=== PATIENT | male | born 1995 | race Caucasian/White ===

== ENCOUNTER 2019-08-26 10:07 | Emergency (ER) | payer OTHER, SELFPAY ==
--- NOTE | ~2019-08-26 | XR_ITS ---
XR hand RT min 3V 08/26/2019 10:28 Indication: Right hand pain after trauma Procedure: 3 views right hand Comparison: 07/18/2003 Findings: There is an oblique fracture proximal aspect of the third metacarpal, best seen on oblique image. There is dorsal displacement and ventral angulation. No other fractures identified. Mild soft tissue swelling. No foreign bodies. Impression: 1: Oblique fracture proximal aspect of the right third metacarpal with dorsal displacement and ventra l angulation. Reviewed, dictated and finalized at location A. Impression: 1: Oblique fracture proximal aspect of the right third metacarpal with dorsal d isplacement and ventral angulation.
[2019-08-26 10:15] VITALS: BP 144/100; PULSE 104; RESP 18; TEMP 36.6; O2SAT 100
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
[2019-08-26] MEDS: MORPHINE SULFATE 4 MG/ML INJ IV PUSH (10:20)
[2019-08-26] MEDS: MORPHINE SULFATE 2 MG/ML INJ IV PUSH (11:35)
== END 2019-08-26 12:18 | disposition home or self-care (01) ==
PROVIDERS: Emergency Provider Emergency Medicine; PCP Family Medicine
DX: S62.312A Displaced fracture of base of third metacarpal bone, right hand, initial encounter for closed fracture (principal); F17.200 Nicotine dependence, unspecified, uncomplicated; W22.09XA Striking against other stationary object, initial encounter
CPT/HCPCS: 29125; 73130; 96374; 96376; 99284; A4565; J2270

== ENCOUNTER 2019-08-29 00:34 | Day surgery (SDC) | payer OTHER, SELFPAY ==
[2019-08-27 13:59] VITALS: BMI 21.4
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
[2019-08-29] VITALS (10 sets, daily range): BP systolic 100–134; BP diastolic 63–89; PULSE 52–69; RESP 12–20; TEMP 36.1–36.9; O2SAT 97–100
--- NOTE | ~2019-08-29 | XR_ITS ---
EXAMINATION: XR surgery orthopedic DATE: 08/29/2019 10:15 INDICATION: ORIF right third metacarpal TECHNIQUE: 5 fluoroscopic spot images of the right hand were obtained during procedure performed by daiana covington or Ariel. Radiologist was not present for the imaging or procedure. The amount of fluoroscopy ti me used during this procedure was 0.7 minutes. COMPARISON: 08/26/2019 FINDINGS: Initial vegetable washer images again demonstrate a comminuted intra-articular fracture at the base of the right third metacarpal with 2 cortical width dorsal displacement and mild palmar angulation at t he more distal oblique extra-axial fracture plane and additional nondisplaced fracture plane extendin g across the proximal metaphyseal fragment to the proximal articular surface. Subsequent images demon strate reduction of the fracture to near-anatomic alignment and fixation across both fracture planes with interfragmentary screws. No other fractures identified. IMPRESSION: 1. Near-anatomic alignment post open reduction and internal fixation of a comminuted intra-articular fracture at the base of the right third metacarpal. Reviewed, dictated and finalized at location A. IMPRESSION: 1. Near-anatomic alignment post open reduction and internal fixation of a commi nuted intra-articular fracture at the base of the right third metacarpal.
[2019-08-29] MEDS: LACTATED RINGERS 1,000 ML 30 ML IV CONT ×2 (07:30→10:21)
--- NOTE | 2019-08-29 07:49 | WPDANESEPPF ---
Anes - Initial Pre Proc Eval Procedure: Operation Date: 08/29/19 09:00 Proposed Procedures p Open Reduction Internal Fixation Right Middle Metacarpal Base - Ap George MD Date/Time: 08/29/19 07:49 Surgeon: Ap George MD Pre Op Diagnosis: Fracture of Third Metacarpal Shaft,Closed Displace Patient Data Age: 23 Gender: M Height: 5 ft 9 in Weight: 65.77 kg Allergies Allergy/AdvReac Type Severity Reaction Status Date / Time No Known Allergies Allergy Verified 08/27/19 14:01 Home Medications Medication Instructions Recorded Confirmed Type hydrocodone-acetaminophen 1 tablet PO Q6H PRN #20 tablet 08/26/19 08/27/19 Rx Patient hx anesthesia problems: none Family hx anesthesia problems: none PMFSH Past Medical History Medical History (Updated 08/27/19 @ 00:00 by Demarcus Eaton) No significant past medical history Surgical History Surgical History No significant past surgical history Social History Social History Smoking status: Current every day smoker Gender identity (if verbalized by the patient): Male Anes - Eval Final PreProcedure Day of Procedure 08/29/19 07:49 Patient weight: normal Heart: regular rate and rhythm Lungs: clear to auscultation Airway: Mallampati scale class II Neurological: alert and oriented Last oral intake: >/= 8 hours ASA classification: II Emergent: no Anesthetic plan: proceed Anesthesia type and monitoring: general LMA and standard monitoring Informed Consent: The patient's anesthetic plan and its attendant risks and benefits were discussed with the patient/family/POA. Questions were solicited and answers provided to the satisfaction of the patient/family/POA.
[2019-08-29] MEDS: LIDO 1%/EPINEPHRINE 1:100,000 20 ML VIAL 10 ML INFILTRATE (08:35)
[2019-08-29] MEDS: BACITRACIN OINTMENT 15 GM TUBE 1 APPLIC TOPICAL (08:37)
[2019-08-29] MEDS: ceFAZolin 2 GM/D5W 50 ML 2 GM/50 ML BAG IVPB (08:56)
--- NOTE | 2019-08-29 08:59 | WPDHPUPDATE1 ---
History and Physical Update Update Date/Time: 08/29/19 08:59 History and Physical has been reviewed, including an updated exam of the patient. There are NO changes in the patient's condition. Risks, benefits, and alternatives have been discussed and questions answered. Patient agrees to proceed with procedure.
--- NOTE | 2019-08-29 10:42 | P.OPB_ITS ---
Procedure Note - Brief Procedure Note - Brief Date of procedure: 08/29/19 Pre-op diagnosis: Fracture of Third Metacarpal Shaft,Closed Displace Post-op diagnosis: other (Closed, comminuted displaced fracture of the right 3rd metacarpal base.) Procedure performed: Open reductioin with internal lag screw fixation. Implants: Two 2.0 mm screws from the Mini Fragment hand set; 16, 18 mm lengths. Anesthesia: GETA Surgeon: Ap George MD Freight Car Builder: Katelyn Estimated blood loss (mL): 3 Tourniquet time (min): 47 Drains: No Packing: No Pathology: none sent Complications: No immediate complications Condition: stable Disposition: PACU
--- NOTE | 2019-08-29 10:47 | P.OP_ITS ---
Procedure Note - Detailed Date of procedure: 08/29/19 Pre-op diagnosis: Fracture of Third Metacarpal Shaft,Closed Displace Closed, comminuted, displaced fracture of the right 3rd metacarpal base Post-op diagnosis: same Procedure performed: Open reduction and internal lag screw fixation x2, right 3rd metacarpal base Description of procedure: The patient's right hand was marked in the holding area. He was taken around to the operating room where he was placed supine on the operating table. A time-out was held. He was given general endotracheal anesthesia. The right upper extremity was prepped and draped in usual fashion. The C-arm was brought in and fracture images made. The operative site was infiltrated with 1% lidocaine with epinephrine. The tourniquet was inflated to 250 mmHg. The dorsal midline incision over the 3rd metacarpal was made. Dissection between the 2nd and 3rd extensor tendons revealed the fracture site very plainly. The fragments were dissected subperiostialy. It was noted there w as comminution of the base into 2 pieces, the smaller, more radial of which also comprised proximal shaft These were relatively easy to reduce and a clamp was applied between 2 shaft fragments. The 2.0 mm lag screw was passed between these providing satisfactory stability. Images confirmed the length to be appropriate. A 2nd lag screw was placed between the larger base fragment and the smaller radial fragment. This completed the fixation and again the screw length was documented as appropriate. The wound was irrigated. The periosteal tissue was closed with 3-0 Vicryl suture. The skin wound was closed with running intradermal 3-0 Vicryl. Additional infiltration of 10 milliliter of 0.5% Marcaine plain was administered. A dressing with Xeroform, fluffy gauze, Michela wrap and Coban was applied. The patient had been given 900 mg of clindamycin prior to surgery. Total tourniquet time was 47 minutes. He is being discharged home with a new prescription for hydrocodone 7.5/325 number 14. He has instructions in wound care and follow-up. Surgeon: Ap George MD
--- NOTE | 2019-08-29 10:50 | SUR.PHASEI ---
1045 - dr. rain at bedside talking with pt.
--- NOTE | 2019-08-29 13:17 | SUR.PHASEII ---
1230: Patient stated, My dressing feels too tight. RN checked cap refill, patient could wiggle fingers, and fit her two fingers between bandage and hand. RN had another RN check and she felt it was fine too. RN reassured patient and explained the purpose of checking cap refill.
== END 2019-08-29 13:05 | disposition home or self-care (01) ==
PROVIDERS: PCP Family Medicine; Visit Provider Plastic Surgery
PROC: (CPT 26615; principal; 2019-08-29 09:00)
DX: S62.312A Displaced fracture of base of third metacarpal bone, right hand, initial encounter for closed fracture (principal); W22.09XA Striking against other stationary object, initial encounter; F17.210 Nicotine dependence, cigarettes, uncomplicated
CPT/HCPCS: 26615; A9270; C1713; J0131; J0690; J2250; J2405; J2704; J3010; J7120

== ENCOUNTER 2019-09-09 17:30 | Outpatient (CLI) | payer OTHER, SELFPAY ==
--- NOTE | ~2019-09-09 | XR_ITS ---
EXAMINATION: XR hand RT min 3V DATE: 09/09/2019 17:57 INDICATION: Displaced fracture of base of third metacarpal. TECHNIQUE: 3 views of right hand were obtained. Soft tissue swelling and COMPARISON: Right hand radiographs 08/26/2019 FINDINGS: There is an oblique extra-articular fracture of base of third metacarpal in near-anatomic a lignment. Internal fixation seen with 2 screws. Again seen is a small fragment of ossification at the radial aspect of base of fifth proximal phalanx. Joint spaces are normal. IMPRESSION: 1. Oblique extra-articular fracture of base of third metacarpal status post open reduction internal f ixation. 2. Unchanged small fragment of ossification at the radial base of fifth proximal phalanx, which may b e an old avulsion fracture. Reviewed, dictated and finalized at location E. IMPRESSION: 1. Oblique extra-articular fracture of base of third metacarpal status post ope n reduction internal fixation. 2. Unchanged small fragment of ossification at the radial base of fifth proxima l phalanx, which may be an old avulsion fracture.
== END 2019-09-09 17:31 | disposition home or self-care (01) ==
LOC: ANHIMG 17:35
PROVIDERS: PCP Family Medicine; Visit Provider Plastic Surgery
DX: S62.316D Displaced fracture of base of fifth metacarpal bone, right hand, subsequent encounter for fracture with routine healing (principal); X58.XXXD Exposure to other specified factors, subsequent encounter
CPT/HCPCS: 73130

== ENCOUNTER 2019-09-12 16:02 | Outpatient (CLI) | payer OTHER, SELFPAY ==
--- NOTE | ~2019-09-12 | CT_ITS ---
EXAMINATION: CT wrist RT wo con DATE: 09/12/2019 16:36 INDICATION: Subluxation of the carpometacarpal joint TECHNIQUE: High resolution computed tomography (CT) of the right wrist and carpus was performed witho ut intravenous contrast. Additional sagittal and coronal reconstructions were performed. Automated ex posure control and iterative reconstruction technique were employed. The dose-length product was 425. 76 mGy-cm. COMPARISON: Radiograph dated 09/09/2019 and 08/26/2019 FINDINGS: Recent internal fixation with 2 interfragmentary screws of an oblique intra-articular fracture at the base of the third metacarpal which is in near-anatomic alignment with no significant fracture gap or incongruity at the articular surface. There is dorsal subluxation and palmar angulation of the fourt h and fifth metacarpals relative to the axis of the second and third metacarpals. There is a small av ulsion fracture fragment at the palmar/radial aspect of the base of the fourth metacarpal which remai ns nondisplaced relative to the base of the third metacarpal. There is an oblique coronally oriented fracture through the hamate. There is approximately 30 degrees dorsal angulation of this fragment res ulting in a 10 mm fracture gap at the articular surface of the fourth and fifth carpal metacarpal cyril nt spaces. The base of the fourth and fifth metacarpals have migrated a few millimeter proximally int o the hamate fracture gap. The hamate fracture plane also extends to involve the articular surfaces w ith the capitate and triquetrum. No other fractures identified. Aside from the angulated dorsal hamat e fragment there is normal alignment of the carpal bones and wrist joint. Joint spaces are normal asi de from the involvement by the previously described fractures. Although not diagnostically evaluated on CT imaging, the muscles and tendons of the hand appear unremarkable. Diffuse mild soft tissue swel ling about the hand. IMPRESSION: 1. Dorsal subluxation and impaction injury at the fourth and fifth carpal metacarpal joints including distraction of a small avulsion fracture fragment at the palmar/radial base of the fourth metacarpal and angulated oblique coronally oriented fracture across the hamate. 2. Near-anatomic alignment of an internally fixed intra-articular fracture at the base of the right t hird metacarpal. Reviewed, dictated and finalized at location A. IMPRESSION: 1. Dorsal subluxation and impaction injury at the fourth and fifth carpal metac arpal joints including distraction of a small avulsion fracture fragment at the palmar/radial base of the fourth metacarpal and angulated oblique coronally or iented fracture across the hamate. 2. Near-anatomic alignment of an internally fixed intra-articular fracture at t he base of the right third metacarpal.
== END 2019-09-12 16:03 | disposition home or self-care (01) ==
LOC: ANHIMG 16:05
PROVIDERS: PCP Family Medicine; Visit Provider Plastic Surgery
DX: S63.051A Subluxation of other carpometacarpal joint of right hand, initial encounter (principal); S62.141A Displaced fracture of body of hamate [unciform] bone, right wrist, initial encounter for closed fracture; X58.XXXA Exposure to other specified factors, initial encounter
CPT/HCPCS: 73200

== ENCOUNTER 2019-09-24 00:35 | Outpatient (CLI) | payer OTHER, SELFPAY ==
[2019-09-24 18:39] LABS: SARS-CoV-2 RNA PCR Negative
== END 2019-09-24 00:36 | disposition home or self-care (01) ==
LOC: ANHCOVIDDT 00:35
PROVIDERS: PCP Family Medicine; Visit Provider Plastic Surgery
DX: Z01.818 Encounter for other preprocedural examination (principal); Z11.59 Encounter for screening for other viral diseases
CPT/HCPCS: 87635; C9803; U0003

== ENCOUNTER 2019-09-26 01:00 | Day surgery (SDC) | payer OTHER, SELFPAY ==
[2019-09-18 10:51] VITALS: BMI 21.7
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
--- NOTE | ~2019-09-26 | XR_ITS ---
EXAMINATION: XR surgery orthopedic DATE: 09/26/2019 11:11 INDICATION: Fractures of hamate and third and fourth metacarpals. TECHNIQUE: 9 intraoperative fluoroscopic views of right wrist were obtained. I was not present. Fluor oscopy exposure time was 112 seconds. COMPARISON: Right hand radiographs 09/09/2019, right wrist CT 09/12/2019 FINDINGS: There is a comminuted fracture of base of third metacarpal in near-anatomic alignment with internal fixation with 2 screws. There is fixation of hamate with a screw. There is a pin in the four th metacarpal and capitate. There is a pin in the second through fifth metacarpals. IMPRESSION: 1. Comminuted fracture of third metacarpal status post open reduction internal fixation. 2. Fracture of hamate status post open reduction internal fixation. Reviewed, dictated and finalized at location A.
--- NOTE | 2019-09-26 08:12 | WPDHPUPDATE1 ---
History and Physical Update Update Date/Time: 09/26/19 08:12 History and Physical has been reviewed, including an updated exam of the patient. There are NO changes in the patient's condition. Risks, benefits, and alternatives have been discussed and questions answered. Patient agrees to proceed with procedure.
[2019-09-26] MEDS: LACTATED RINGERS 1,000 ML 30 ML IV CONT (08:56)
[2019-09-26 08:59] VITALS: BP 125/82; PULSE 56; TEMP 36.9; O2SAT 100
--- NOTE | 2019-09-26 09:17 | WPDANESEPPF ---
Anes - Initial Pre Proc Eval Procedure: Operation Date: 09/26/19 10:00 Proposed Procedures p Open Reduction Internal Fixation Right Hamate and Right Fourth Metacarpal Base - Ap George MD Date/Time: 09/26/19 09:17 Surgeon: Ap George MD Pre Op Diagnosis: fx right hamate bone and rt metacarpal base Patient Data Age: 23 Gender: M Height: 5 ft 9 in Weight: 67.1 kg Last Vital Signs Temp 36.9 C 09/26/19 08:59 Pulse 56 L 09/26/19 08:59 BP 125/82 09/26/19 08:59 Pulse Ox 100 09/26/19 08:59 Allergies Allergy/AdvReac Type Severity Reaction Status Date / Time No Known Allergies Allergy Verified 09/18/19 10:51 Home Medications Medication Instructions Recorded Confirmed Type No Home Medications 09/18/19 09/18/19 History hydrocodone-acetaminophen 1 tablet PO Q4H PRN #14 tablet 09/26/19 Rx Patient hx anesthesia problems: none Family hx anesthesia problems: none PMFSH Past Medical History Medical History No significant past medical history Surgical History Surgical History No significant past surgical history Social History Social History Smoking status: Current every day smoker Gender identity (if verbalized by the patient): Male Anes - Eval Final PreProcedure Day of Procedure 09/26/19 09:17 Patient weight: normal Heart: regular rate and rhythm Lungs: clear to auscultation Airway: Mallampati scale class II Neurological: alert and oriented Last oral intake: >/= 8 hours ASA classification: II Emergent: no Anesthetic plan: proceed Anesthesia type and monitoring: general LMA and standard monitoring Informed Consent: The patient's anesthetic plan and its attendant risks and benefits were discussed with the patient/family/POA. Questions were solicited and answers provided to the satisfaction of the patient/family/POA.
[2019-09-26] MEDS: ceFAZolin 2 GM/D5W 50 ML 2 GM/50 ML BAG IVPB (09:36)
[2019-09-26] MEDS: LIDO 1%/EPINEPHRINE 1:100,000 20 ML VIAL INFILTRATE (10:12)
[2019-09-26 11:40] VITALS: BP 129/82; PULSE 90; RESP 14; TEMP 36.9; O2SAT 100
--- NOTE | 2019-09-26 11:58 | P.OPB_ITS ---
Procedure Note - Brief Procedure Note - Brief Date of procedure: 09/26/19 Pre-op diagnosis: fx right hamate bone and rt metacarpal base Post-op diagnosis: other (Displaced fracture of the right hamate/ Fracture dislocation of the 4th metacarpal base/ Subluxation of the 5th metacarpal.) Procedure performed: ORIF of the right hamate. Orif of the 4th metacarpal base. Reduction and internal fixation of the 5th metacarpal subluxation. Implants: 2.0 x 16 mm lag screw from the [employer]. Hand set. 0.045 inch cwire x2. Anesthesia: GLMA (1% lidocaine with epinephrine and Exparel) Surgeon: Ap George MD Felt Hooker: Sergio Estimated blood loss (mL): 10 Tourniquet time (min): 97 Drains: No Packing: No Pathology: none sent Complications: No immediate complications Condition: stable Disposition: PACU
[2019-09-26 12:33] VITALS: BP 134/99; PULSE 70; RESP 13; TEMP 36.9; O2SAT 96
[2019-09-26 12:55] VITALS: BP 156/95; PULSE 62; RESP 16
--- NOTE | 2019-09-26 13:09 | SUR.PHASEII ---
1308 updated mom on son condition, is heading this way
[2019-09-26 13:25] VITALS: BP 136/90; PULSE 58; RESP 14
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
--- NOTE | 2019-09-26 16:33 | P.OP_ITS ---
Procedure Note - Detailed Date of procedure: 10/03/19 Pre-op diagnosis: fx right hamate bone and rt metacarpal base Coronal fracture of the right metacarpal, comminuted displaced fracture of the base of the 4th metacarpal, proximal dorsal subluxation of the base of the 5th metacarpal. Post-op diagnosis: same Procedure performed: Open reduction and internal fixation of the hamate and right 4th metacarpal base fractures and reduction of subluxed right 5th metacarpal base Description of procedure: The patient's right hand was marked as he waited in the holding area. He was rolled to the operating room and placed supine on the operating table. A time-out was held and confirmed. He was given general anesthesia and the extremity was prepped and draped in the usual fashion. The site was marked for the incision. The area was locally infiltrated with 1% lidocaine with epinephrine. The tourniquet was inflated to 250 mmHg. C-arm images of the fracture condition were examined. The incision was made as marked and dissection was carried across the wrist paralleling the 4th and 5th metacarpals. The cutaneous nerves were protected, several veins were cauterized.The dissection was carried out between the 4th and 5th extensor tendons and the fracture sites were exposed subperiosteally where feasible. Fracture clot material was removed. The dorsal hamate fracture fragment was identified cleanly split in the coronal plane. This was not comminuted. The base of the 4th metacarpal was in several displaced fragments. The base of the 5th metacarpal was not fractured. Both metacarpals had proximally subluxed into the fracture gap of the hamate. Soft tissue around these fractures had thickened and considerable dissection work was required to reduce these. When it could be accomplished, the hamate fracture was repaired with a single 2 mm x 16 mm lag screw from [employer] handset. The base of the 4th metacarpal was reduced to its palmar fragment and to the hamate. A longitudinally oriented C-wire was passed through the base of the 4th metacarpal capturing the dorsal cortex . This passed into the capitate. Several images demonstrate the pin does not exit the capitate. The base of the 5th metacarpal was reduced also to the hamate. A 2nd C-wire was passed transversely across the proximal aspect of the 5th 4th and 3rd metacarpals. Additional stabilization did not seem to be required. Exposure of the hamate resulted in opening the triquetral hamate joint. The large dorsal plate fragment remained attached to soft tissue along the ulnar border. The ligamentous tissue between the triquetrum and hamate was repaired with a suture anchor and single 0 braided suture. Both C wires were cut short beneath skin level and pigtailed. Neither of these impinges directly upon musculotendinous tissue and did not restrict passive range of motion. The tourniquet was released prior to skin closure; it was up for 97 minutes. The skin was closed with a running intradermal 3-0 Vicryl suture. 8 milliliter of Exparel anesthetic were injected over the dorsum of the wrist and hand. A soft bulky bandage with Shubham wrap was applied, no splint He is being discharged home with a prescription for oxycodone 5/325. He was given 2 g of Ancef preop and also received IV acetaminophen preop. Surgeon: Ap George MD
== END 2019-09-26 14:46 | disposition home or self-care (01) ==
PROVIDERS: PCP Family Medicine; Visit Provider Plastic Surgery
PROC: (CPT 26615; principal; 2019-09-26 10:00)
DX: S62.141A Displaced fracture of body of hamate [unciform] bone, right wrist, initial encounter for closed fracture (principal); S62.314A Displaced fracture of base of fourth metacarpal bone, right hand, initial encounter for closed fracture; S62.316A Displaced fracture of base of fifth metacarpal bone, right hand, initial encounter for closed fracture; W22.09XA Striking against other stationary object, initial encounter; F17.200 Nicotine dependence, unspecified, uncomplicated
CPT/HCPCS: 25645; 26615 ×2; A9270; C1713; C9290; J0131; J0690; J1100; J2250; J2405; J2704; J3010; J7120

== ENCOUNTER 2019-10-18 00:19 | Outpatient (CLI) | payer OTHER, SELFPAY ==
[2019-10-18 20:58] LABS: SARS-CoV-2 RNA PCR Negative
== END 2019-10-18 00:20 | disposition home or self-care (01) ==
LOC: ANHCOVIDDT 00:20
PROVIDERS: PCP Family Medicine; Visit Provider Plastic Surgery
DX: Z01.818 Encounter for other preprocedural examination (principal); Z11.59 Encounter for screening for other viral diseases
CPT/HCPCS: 87635; C9803; U0003

== ENCOUNTER 2019-10-21 01:44 | Day surgery (SDC) | payer OTHER, SELFPAY ==
[2019-10-16 17:12] VITALS: BMI 21.4
--- NOTE | 2019-10-17 16:45 | HP_ITS ---
DATE OF SERVICE: 10/21/2019 PREOPERATIVE DIAGNOSES: History of ORIF of right hamate fracture, 4th metacarpal base fracture, and 5th metacarpal subluxation. HISTORY: This man punched a wall at his home on August 25. X-rays revealed what we thought was a 3rd metacarpal base fracture and that was repaired on 08/29/2019. Subsequently had some deformity to the hand that appeared suddenly and additional radiologic workup including CT scan revealed the fractured hamate and the proximally dislocated 4th and 5th metacarpals and the 4th metacarpal base fracture. He has been fixed with a screw and 2 C-wires for the more recently diagnosed fractures and 2 screws for the middle metacarpal fracture. We are bringing him today for removal of the 2 C-wires as planned. OTHER PAST MEDICAL HISTORY: Indicates that he uses no chronic medications. ALLERGIES: HE IS NOT KNOWN TO BE ALLERGIC TO ANY MEDICATIONS. PAST SURGICAL HISTORY: He has had no other surgeries than those mentioned above. He is not aware of any chronic ailments and he is a nonsmoker. FAMILY HISTORY: Noncontributory. REVIEW OF SYSTEMS: Otherwise negative. SOCIAL HISTORY: He lives in [place]. He works for [employer] and does need to be able to do fine motor movement. PHYSICAL EXAMINATION: GENERAL: He is a pleasant, cooperative adult male, 5 feet 8, weighs 135 pounds. He is in no distress. HEENT: Unremarkable. CHEST: Clear to auscultation. HEART: Regular rate and rhythm by palpation. ABDOMEN: Soft, nontender. EXTREMITIES: Appear normal. He has some decreased range of motion in the right hand, particularly the ulnar digits. He is very tender over the pin sites. He continues to work with therapy. ASSESSMENT: History of ORIF of the right 4th and 5th metacarpals and hamate. PLAN: Planned removal of 2 fixation C-wires under MAC anesthetic. D I MT: Sergio
--- NOTE | ~2019-10-21 | XR_ITS ---
EXAMINATION: XR surgery orthopedic DATE: 10/21/2019 12:43 INDICATION: Orthopedic instrumentation removal from the right hand TECHNIQUE: A fluoroscopic spot images of the right hand were obtained during procedure performed by Perez George. Radiologist was not present for the imaging or procedure. The amount of fluoroscopy time us ed during this procedure was 0.2 minutes. COMPARISON: 09/26/2019 FINDINGS: Interval removal of a percutaneous pin extending across the base of the fourth metacarpal into the ca pitate. No interval change in 3 fixation screws, one at the hamate and the other 2 at the base of the third metacarpal for fixation of previously seen fractures. There is new callus formation, not yet d efinitively solidly bridging across the oblique fracture at the base of the third metacarpal which re jessie in near-anatomic alignment. The hamate fracture also appears to remain in essentially anatomic alignment. The previously seen tiny fracture at the radial side of the base of the fourth metacarpal is not clearly visualized. Profiled joint spaces are normal. No other fractures identified. IMPRESSION: 1. Interval removal of a previous scans fixation pin spanning the fourth carpal metacarpal joint. 2. Unchanged screw fixation of fractures at the hamate and base of the third metacarpal which remain in near anatomic alignment with changes of healing at the latter. Reviewed, dictated and finalized at location A. IMPRESSION: 1. Interval removal of a previous scans fixation pin spanning the fourth carpal metacarpal joint. 2. Unchanged screw fixation of fractures at the hamate and base of the third me tacarpal which remain in near anatomic alignment with changes of healing at the latter.
[2019-10-21 10:29] VITALS: BP 104/64; PULSE 62; RESP 16; TEMP 36.3; O2SAT 98
[2019-10-21] MEDS: LACTATED RINGERS 1,000 ML 30 ML IV CONT (10:45)
--- NOTE | 2019-10-21 11:51 | WPDHPUPDATE1 ---
History and Physical Update Update Date/Time: 10/21/19 11:51 History and Physical has been reviewed, including an updated exam of the patient. There are NO changes in the patient's condition. Risks, benefits, and alternatives have been discussed and questions answered. Patient agrees to proceed with procedure.
--- NOTE | 2019-10-21 11:57 | WPDANESEPPF ---
Anes - Initial Pre Proc Eval Procedure: Operation Date: 10/21/19 12:00 Proposed Procedures p Planned Removal of C-Wires Right Hand - Ap George MD Date/Time: 10/21/19 11:57 Surgeon: Ap George MD Pre Op Diagnosis: S62.151A, S62.314A Patient Data Age: 24 Gender: M Height: 5 ft 9 in Weight: 63.6 kg Last Vital Signs Temp 97.4 F L 10/21/19 10:29 Pulse 62 10/21/19 10:29 Resp 16 10/21/19 10:29 BP 104/64 10/21/19 10:29 Pulse Ox 98 10/21/19 10:29 Allergies Allergy/AdvReac Type Severity Reaction Status Date / Time No Known Allergies Allergy Verified 10/16/19 17:20 Home Medications Medication Instructions Recorded Confirmed Type hydrocodone-acetaminophen 1 tablet PO Q6-8H PRN #15 tablet 10/16/19 10/16/19 Rx Patient hx anesthesia problems: none Family hx anesthesia problems: none PMFSH Social History Social History Smoking status: Current every day smoker Gender identity (if verbalized by the patient): Male Anes - Eval Final PreProcedure Day of Procedure 10/21/19 11:57 Patient weight: normal Heart: regular rate and rhythm Lungs: clear to auscultation Airway: Mallampati scale class II Neurological: alert and oriented Last oral intake: >/= 8 hours ASA classification: II Emergent: no Anesthetic plan: proceed Anesthesia type and monitoring: general GIVS and standard monitoring Informed Consent: The patient's anesthetic plan and its attendant risks and benefits were discussed with the patient/family/POA. Questions were solicited and answers provided to the satisfaction of the patient/family/POA.
[2019-10-21] MEDS: BUPIVACAINE/EPINEPHRINE 0.5% 30 ML VIAL 10 ML INFILTRATE (12:28)
[2019-10-21] MEDS: LIDO 1%/EPINEPHRINE 1:100,000 20 ML VIAL 7 ML INFILTRATE (12:30)
[2019-10-21] MEDS: KETOROLAC 30 MG/ML VIAL (*BKC) IV PUSH (12:31)
[2019-10-21 12:41] VITALS: BP 97/57; PULSE 52; RESP 16; O2SAT 99
--- NOTE | 2019-10-21 13:03 | PM.OP ---
Procedure Note - Brief Procedure Note - Brief Date of procedure: 10/21/19 Pre-op diagnosis: S62.151A, S62.314A Fractures of the 4th and 5th metacarpal bases and hamate. Post-op diagnosis: same Procedure performed: Planned removal of 2 c-wires. Anesthesia: MAC Surgeon: Ap George MD Estimated blood loss (mL): 5 Tourniquet time (min): 12 Drains: No Packing: No Pathology: none sent Complications: No immediate complications Condition: stable Disposition: same day
[2019-10-21 13:15] VITALS: BP 122/79; PULSE 45; RESP 14
[2019-10-21 13:45] VITALS: BP 113/77; PULSE 42; RESP 14
--- NOTE | 2019-10-21 18:30 | PM.PROC ---
Procedure Note - Detailed Date of procedure: 10/21/19 Pre-op diagnosis: S62.151A, S62.314A Fracture of right 4th metacarpal base and fracture of the hamate and subluxation of the right 5th metacarpal. Post-op diagnosis: same Procedure performed: Planned removal of two fixation c-wires from right hand. Description of procedure: The appropriate hand was marked on the patient's in the holding area. He was then taken to the operating room where he was placed supine on the operating table. A time-out was held and confirmed he was then given IV sedation and the right Upper extremity was prepped and draped in the usual fashion. The most ulnar pin could easily be palpated beneath the skin. The C-arm was brought and to image the 2nd pin this was identified to be accessible under 1 of the previous incisions. Both sites were anesthetized with 1% lidocaine with epinephrine. The tourniquet was inflated to 250 mmHg. The incision over the 2nd metacarpal was made and blunt dissection revealed the extensor tendons. The skin and fascia were carefully elevated off the dorsal surface of the tendons for several cm. We then released beneath the extensor tendons as well and this seemed to improve the ease of passive motion of the ring and small fingers. The more radial pin was identified within some scar and was easily removed with the large needle brody. The 2nd incision was made over the more superficial pin on the ulnar side. This pin was easily identified as well and was brought out without difficult. No tenolysis was performed from that small wound. The tourniquet was released. The wounds were closed with running 5 0 nylon suture a compressive bandage with Coban wrap was applied with instructions this could be Marycruz removed later. A prescription for hydrocodone 5 15. Was sent. No antibiotics were utilized. Blood loss was approximately 5 milliliter. There were no complications noted. Surgeon: Ap George MD
== END 2019-10-21 14:05 | disposition home or self-care (01) ==
PROVIDERS: PCP Family Medicine; Visit Provider Plastic Surgery
PROC: (CPT 20694; principal; 2019-10-21 12:00)
DX: Z47.2 Encounter for removal of internal fixation device (principal); S62.314D Displaced fracture of base of fourth metacarpal bone, right hand, subsequent encounter for fracture with routine healing; S62.141D Displaced fracture of body of hamate [unciform] bone, right wrist, subsequent encounter for fracture with routine healing; F17.210 Nicotine dependence, cigarettes, uncomplicated
CPT/HCPCS: 20680 ×2; A9270; J1885; J2250; J2405; J2704; J3010; J7120

== ENCOUNTER → 2020-12-25 13:34 | Outpatient (CLI) | payer OTHER, SELFPAY ==
--- NOTE | ~2020-12-25 | XR_ITS ---
EXAMINATION: XR finger 1st LT min 2V DATE: 12/25/2020 15:18 INDICATION: Left thumb pain and swelling. TECHNIQUE: 3 views of left thumb were obtained. COMPARISON: None. FINDINGS: Bone alignment is normal. No fracture. Joint spaces are well maintained. IMPRESSION: 1. Normal left thumb. Reviewed, dictated and finalized at location A. IMPRESSION: 1. Normal left thumb.
--- NOTE | ~2020-12-25 | XR_ITS ---
EXAMINATION: XR hand LT min 3V DATE: 12/25/2020 15:18 INDICATION: Left hand pain and swelling. TECHNIQUE: 3 views of left hand were obtained. COMPARISON: None. FINDINGS: Bone alignment is normal. No acute fracture. There are ossicles distal to the ulna. Joint s paces are well maintained. IMPRESSION: 1. No acute fracture. Reviewed, dictated and finalized at location A. IMPRESSION: 1. No acute fracture.
== END ==
DX: M25.542 Pain in joints of left hand (principal)
CPT/HCPCS: 73130; 73140

== ENCOUNTER 2022-12-12 11:57 | Outpatient (CLI) | payer OTHER, SELFPAY ==
--- NOTE | ~2022-12-12 | XR_ITS ---
EXAMINATION: XR wrist RT min 3V DATE: 12/12/2022 12:18 INDICATION: Right wrist pain and weakness. TECHNIQUE: 4 views of right wrist were obtained. COMPARISON: Right hand radiographs 09/09/2019 FINDINGS: There is an old healed fracture of base of third metacarpal with fixation with 2 screws. Th ere is a screw in the hamate. Again seen is ununited ossification at radial aspect of base of fifth p roximal phalanx. No acute fracture. Joint spaces are normal. IMPRESSION: 1. No acute fracture. Reviewed, dictated and finalized at location A. IMPRESSION: 1. No acute fracture.
== END 2022-12-12 11:58 | disposition home or self-care (01) ==
LOC: ANHIMG 12:05
PROVIDERS: Visit Provider Plastic Surgery
DX: M19.031 Primary osteoarthritis, right wrist (principal)
CPT/HCPCS: 73110